=== PATIENT | male | born 1955 | race Caucasian/White ===

== ENCOUNTER 2023-03-19 02:27 | Outpatient (CLI) | payer MEDICARE, BC, SELFPAY | END 2023-03-19 02:28 | disposition home or self-care (01) | LOC: LBO 02:27 | PROVIDERS: PCP Nurse Practitioner Family; Visit Provider Nurse Practitioner Family | DX: N40.0 Benign prostatic hyperplasia without lower urinary tract symptoms (principal) | CPT/HCPCS: 36415; 84154 ==

== ENCOUNTER → 2023-08-11 12:40 | Outpatient (BNVA) | payer MEDICARE, BC, SELFPAY | PROVIDERS: PCP Nurse Practitioner Family; Referring Provider Nurse Practitioner Family; Visit Provider Nurse Practitioner Gerontology | DX: N52.9 Male erectile dysfunction, unspecified (principal); E78.5 Hyperlipidemia, unspecified | CPT/HCPCS: 99203 ==

== ENCOUNTER 2024-03-25 05:21 | Outpatient (CLI) | payer MEDICARE, BC, SELFPAY ==
[2024-03-25 13:11] LABS: Calculated LDL 100 mg/dL (<100); Cholesterol 175 mg/dL (<200); HDL Cholesterol 65 mg/dL (40-60); Triglyceride 54 mg/dL (<150)
[2024-03-25 13:13] LABS: Hemoglobin A1C 5.5 % (<5.7)
[2024-03-25 21:02] LABS: PSA, Screening 1.7 ng/mL (<=4.5)
== END 2024-03-25 05:22 | disposition home or self-care (01) ==
LOC: LOS 05:21
PROVIDERS: PCP Nurse Practitioner Family; Visit Provider Family Medicine
DX: E78.5 Hyperlipidemia, unspecified (principal); N40.0 Benign prostatic hyperplasia without lower urinary tract symptoms; Z13.1 Encounter for screening for diabetes mellitus
CPT/HCPCS: 36415; 80061; 84153; 83036